=== PATIENT | female | born 1985 | race Asian ===

== ENCOUNTER → 2016-10-31 | Outpatient (CLI) | payer OTHER ==
[2016-11-03 15:49] LABS: LUTEINIZING HORMONE 3.2 mIU/mL
== END | disposition home or self-care (01) ==
LOC: LAB 14:34
PROVIDERS: ATTEND Emergency Medicine
DX: Z36 Encounter for antenatal screening of mother (principal); Z3A.00 Weeks of gestation of pregnancy not specified
CPT/HCPCS: 82670; 83001; 83002; 84443